=== PATIENT | male | born 1980 | race Caucasian/White ===

== ENCOUNTER 2023-06-13 00:37 | Emergency (ER) | payer OTHER, BC ==
[~2023-06-13] VITALS: Ht 175.3 cm; Wt 96.2 kg
[2023-06-13 00:45] VITALS: BP 137/96; PULSE 108; RESP 20; TEMP 98; O2SAT 98
== END 2023-06-13 04:32 | disposition left against medical advice (07) ==
LOC: MED 00:37
DX: S01.101A Unspecified open wound of right eyelid and periocular area, initial encounter (principal); H57.12 Ocular pain, left eye; H02.846 Edema of left eye, unspecified eyelid; Z53.21 Procedure and treatment not carried out due to patient leaving prior to being seen by health care provider; Y04.0XXA Assault by unarmed brawl or fight, initial encounter; Y93.89 Activity, other specified; Y92.89 Other specified places as the place of occurrence of the external cause; Y99.8 Other external cause status
CPT/HCPCS: 99281

== ENCOUNTER 2023-06-13 07:04 | Emergency (ER) | payer OTHER, BC ==
[~2023-06-13] VITALS: Ht 175.3 cm; Wt 90.7 kg
[2023-06-13 07:39] VITALS: BP 131/78; PULSE 92; RESP 20; TEMP 97.4
[2023-06-13] MEDS ORDERED: KETOROLAC 30 MG/ML VIAL IM ONE (08:00)
== END 2023-06-13 10:08 | disposition left against medical advice (07) ==
LOC: MED 07:04
DX: S01.111A Laceration without foreign body of right eyelid and periocular area, initial encounter (principal); Y08.89XA Assault by other specified means, initial encounter; Y93.89 Activity, other specified; Y92.89 Other specified places as the place of occurrence of the external cause; Y99.8 Other external cause status
CPT/HCPCS: 70450; 99284